=== PATIENT | female | born 1980 | race Caucasian/White ===

== ENCOUNTER 2016-12-19 12:47 | Emergency (ER) | payer OTHER ==
--- NOTE | ~2016-12-19 | CR230 ---
[facility]. [facility] A Service of [facility] & [facility] RADIOLOGY TEXT RESULTS PATIENT: VAMSI APARICIO LOCATION: SED : 76 UNIT #: [id number] AGE: [address]: Franki Gonzalez MD SEX: F ORDER DR: [id number] [place] [id number] E MR#: [id number] Acc #: [id number] NAME: VAMSI APARICIO : 1980 SEX: F STUDY DATE/TIME: 12/19/2016 13:01 UNIT: SED ROOM: STUDY DESCRIPTION: CR Shoulder Min 2 View Rt Attending Physician: Franki Gonzalez M.D. Ordering Physician: Franki Gonzalez M.D. Primary Care Physician: Kerri Duncan M.D. MEDICAL IMAGING REPORT This report is preliminary unless electronic signature is present. EXAM Right shoulder 3 views 12/19/2016 1301 hours HISTORY Patient woke up with shoulder pain today 30 minutes prior to admission. No known injury. COMPARISON None. FINDINGS AP views in internal-external rotation and a scapula Y-view demonstrate no fracture, dislocation or soft tissue calcification. Clothing artifact is present. IMPRESSION Negative right shoulder. Dictated by... Cherelle Leon M.D. THIS IS AN ELECTRONICALLY VERIFIED REPORT Cherelle Leon M.D. at 12/20/2016 9:34 AM DARIELA/philippe TD: 12/19/2016 18:09 JOB #: [id number] MEDICAL IMAGING REPORT Page 1 of 1
[~2016-12-19 12:47] MED LIST: FLEXERIL10 MG PO; NO MEDICATIONS; PEN-VEE K PO; PHENERGAN25 MG PO; SUBOXONE 2 MG-1 EAC1 SL
[2016-12-19] MEDS ORDERED: SUBOXONE 12 MG1 EACH (12:52)
== END 2016-12-19 14:30 | disposition home or self-care (01) ==
LOC: SED 12:47
DX: S46.911A Strain of unspecified muscle, fascia and tendon at shoulder and upper arm level, right arm, initial encounter (principal); F17.200 Nicotine dependence, unspecified, uncomplicated; Z88.1 Allergy status to other antibiotic agents; X58.XXXA Exposure to other specified factors, initial encounter; Y92.009 Unspecified place in unspecified non-institutional (private) residence as the place of occurrence of the external cause
CPT/HCPCS: 73030; 99283